=== PATIENT | female | born 1990 | race Caucasian/White ===

== ENCOUNTER 2017-01-02 19:39 | Emergency (ER) | payer OTHER ==
[~2017-01-02] VITALS: Ht 167.6 cm; Wt 90.7 kg
[~2017-01-02 19:39] MED LIST: BENADRYL 25MG C25 MG PO; CARAFATE1 GM PO; MEDROL 4MG. DOSE4 MG PO; MOTRIN 600MG.600 MG PO; PLAQUENIL200 MG PO; PREDNISONE50 MG PO; PROZAC40 MG PO; SKELAXIN800 MG PO; VICODIN 5/500 T1 TAB PO; ZOFRAN4 MG PO
[2017-01-02] MEDS ORDERED: BACTRIM DS 8001 TA1 PO (19:54)
[2017-01-02] MEDS ORDERED: DIFLUCAN150 MG PO (19:54)
[2017-01-02 19:56] VITALS: BP 117/82
--- NOTE | 2017-01-02 20:04 | Urgent Treatment Center Report ---
History of Present Issue Date/Time Seen by Provider 01/02/171953 Visit Reason Pt arrived:Walked Presenting Problem:PT HAS RED AREA BOIL LIKE ON RT BUTTOCKS Location if Accident: Onset of symptoms date/time:/ or onset unknown for:MEDICAL HX UNKNOWN Have you (or family members/close friends) recently traveled outside the [place]? N If Yes, where/when: Have you had exposure to infectious disease within the past month? TB? Other? Specify: Patient states that noticed that she had 3 small boils on her right buttocks state that the where red and sore and she has been cleaning them with witch tracy and they are doing better but one area is still sore and slightly red. States that each of them is small but really tender ALLERGIES Coded Allergies: MDX - Codeine (Codeine) (06/10/10) Converted from Ingredient Allergy: Codeine MDX - Cyclobenzaprine (From Cyclobenzaprine HCl) (06/10/10) Converted from Generic Allergy: Cyclobenzaprine Hcl MDX - Guaifenesin (From GUIAFENESIN/PSE) (NA-NAUSEA/VOMITING 05/07/12) MDX - Promethazine (From Promethazine HCl) (06/10/10) Converted from Generic Allergy: Promethazine Hcl MDX - Pseudoephedrine (From GUIAFENESIN/PSE) (NA-NAUSEA/VOMITING 05/07/12) Home Medications Active Scripts Metaxalone (Skelaxin) 800 MG PO TID #21 TAB Prov: 05/07/12 Reported Medications Fluoxetine Hcl (Prozac) 40 MG PO DAILY History Medical History General Angina: No CT: No Hypertension? No Hyperlipidemia? No CHF? No COPD? No Asthma? No CVA? No Seizures? No Diabetes? No GB Disease: No MRSA? No TB? No Cancer? No Immunization HX DT/Tetanus 1-4 YRS Surgical Hx Previous Surgery?Y Back Surgery TUMOR LT BREAST WISDOM TEETH Social History Smoking Hx Smoker: Never Smoker Tobacco: No Alcohol Alcohol: No Review of Systems All Other Systems Reviewed and Negative Comment three small boils on her buttock Physical Exam Vital Signs Vital Signs Date Time Temp Pulse Resp B/P Pulse O2 O2 Flow FiO2 Ox Delivery Rate 01/02 1945 98.1 62 20 117/82 97 General Appearance normal appearance, WD/WN, no apparent distress Respiratory Status Yes: trachea midline, chest symmetrical, non tender chest. No: respiratory distress. Cardiovascular normal exam, regular rate/rhythm, no peripheral edema Neurologic alert, dust box tender II-XII nml as tested, normal exam, no motor/sensory deficits, oriented x 3 Comments three small boil like area on right buttock that where slightly pink no streaks one was brown in color and appeared to be drying the other two was less that 0.5cm Medical Decision Making LABS/Meds/Orders Pt receiving controlled substance in ED? No Departure Departure Time of Disposition 1950 Disposition DC Home or Self Care(routine) Clinical Impression Primary Impression: Skin infection Condition STABLE Referrals [facility] (Family) Patient Instructions DI for Boils Additional Instructions Keep area clean and dry Take medication as prescribed Follow up with family doctor Watch area and if medication does not help or dry area up follow up with family doctor Return if needed Discharge Counseling Counseled pt/family regarding diagnosis, medications/RX, home care, follow up needs Prescriptions Current Visit Scripts SULFAMETHOXAZOLE W/TRIMETHOPRI (Bactrim Ds Tab) 1 TABLET PO BID #20 TAB Fluconazole (Diflucan 150MG) 150 MG PO DAILY #2 TAB at 2004
--- OUTSIDE RECORDS SUMMARY | 2017-01-04 22:35 | External Medical Summary Rpt ---
Author Author SETH Address Unknown Phone Purpose Continuity of Care Document - through 2016
--- OUTSIDE RECORDS SUMMARY | 2017-01-04 22:35 | External Medical Summary Rpt ---
Author Author SETH Address Unknown Phone [email or web address] Purpose Continuity of Care Document - 10-17-2016 through 2016
--- OUTSIDE RECORDS SUMMARY | 2017-01-04 22:35 | External Medical Summary Rpt ---
Author Author SETH Fanium, SETH Fanium Organization [employer] Address Unknown Phone Unavailable Results Comprehensive metabolic 2000 panel in Serum or Plasma Observa Value Referen Units Interpr Notes Date tion ce etation Range Albumin/G 1.1 - 1.8 No Normal No October 17 lobulin informati informati 2016 8:10 [Mass on in on in AM ratio] in source source Serum or data data Plasma Albumin 3.4 - 5.0 gm/dL Normal No October 17 [Mass/vol informati 2016 8:10 ume] in on in AM Serum or source Plasma data Alkaline 46 - 116 U/L Normal No October 17 phosphata informati 2016 8:10 se on in AM [Enzymati source c data activity/ volume] in Serum or Plasma Bilirubin 0.2 - 1.0 mg/dL Normal No October 17 .total informati 2016 8:10 [Mass/vol on in AM ume] in source Serum or data Plasma Urea 7 - 18 mg/dL Normal No October 17 nitrogen informati 2016 8:10 [Mass/vol on in AM ume] in source Serum or data Plasma Calcium 8.5 - mg/dL Normal No October 17 [Mass/vol 10.1 informati 2016 8:10 ume] in on in AM Serum or source Plasma data Chloride 98 - 107 mmoL/L Normal No October 17 [Moles/vo informati 2016 8:10 lume] in on in AM Serum or source Plasma data Carbon 21.0 - mmoL/L Normal No October 17 dioxide, 32.0 informati 2016 8:10 total on in AM [Moles/vo source lume] in data Serum or Plasma Creatinin 0.55 - mg/dL Normal No October 17 e 1.02 informati 2016 8:10 [Mass/vol on in AM ume] in source Serum or data Plasma Estimated 59- ML/MIN No REFERENCE October 17 informati RANGE: 2017 8:10 glomerula on in >60 AM r source ML/MIN/1. filtratio data 73 SQUARE n rate METERSIf (GF this patient is -A merican, then multiply theresult by 1.210. Globulin 1.3 - 3.2 gm/dL Normal No October 17 [Mass/vol informati 2016 8:10 ume] in on in AM Serum source data Glucose 74 - 106 mg/dL Normal No October 17 [Mass/vol informati 2016 8:10 ume] in on in AM Serum or source Plasma data Potassium 3.5 - 5.1 mmoL/L Normal No October 172016 8:10 [Moles/vo on in AM lume] in source Serum or data Plasma Sodium 136 - 145 mmoL/L Normal No October 17 [Moles/vo informati 2016 8:10 lume] in on in AM Serum or source Plasma data Aspartate 15 - 37 U/L Low No October 172016 8:10 aminotran on in AM sferase source [Enzymati data c activity/ volume] in Serum or Plasma Alanine 12 - 78 U/L Normal No October 17 aminotran 2016 8:10 sferase on in AM [Enzymati source c data activity/ volume] in Serum or Plasma Protein 6.4 - 8.2 gm/dL Normal No October 17 [Mass/vol informati 2016 8:10 ume] in on in AM Serum or source Plasma data Lipid 1996 panel in Serum or Plasma Observa Value Referen Units Interpr Notes Date tion ce etation Range Cholester < 200 mg/dL No No October 17 ol informati informati 2016 8:10 [Moles/vo on in on in AM lume] in source source Unspecifi data data ed specimen Cholester 40 - 60 MG/DL High No October 17 ol in HDL inform2016 8:10 on in AM [Mass/vol source ume] in data Serum or Plasma Cholester 0 - 130 mg/dL Normal No October 17 ol in LDL 2016 8:10 on in AM [Mass/vol source ume] in data Serum or Plasma by calculati on Triglycer 30 - 200 mg/dL Normal No October 17 mercedes ati 2016 8:10 [Moles/vo on in AM lume] in source Serum or data Plasma Cholester 0 - 40 No Normal October 17 ol in informati informati 2016 8:10 VLDL on in on in AM [Mass/vol source source ume] in data data Serum or Plasma Thyrotropin [Units/volume] in Serum or Plasma Observa Value Referen Units Interpr Notes Date tion ce etation Range Thyrotrop 0.358 - uIU/ml Normal No October 17 in 3.740 informati 2016 8:10 [Units/vo on in AM lume] in source Serum or data Plasma CBC W Auto Differential panel in Blood Observa Value Referen Units Interpr Notes Date tion ce etation Range Basophils 0 - 0.2 K/MM3 Normal No October 17 informati 2016 8:10 [#/volume on in AM ] in source Blood by data Automated count Basophils 0.1 - 2.0 % Normal No October 17 / informati 2016 8:10 leukocyte on in AM s in source Blood by data Automated count Eosinophi 0.0 - 0.4 K/mm3 Normal No October 17 ls informati 2016 8:10 [#/volume on in AM ] in source Blood by data Automated count Eosinophi 0.1 - % Normal No October 17 ls/100 12.0 informati 2016 8:10 leukocyte on in AM s in source Blood by data Automated count Granulocy 1.8 - 7.8 K/mm3 Normal No October 17 ena informati 2016 8:10 [#/volume on in AM ] in source Blood by data Automated count Granulocy 37.0 - % Normal No October 17 ena/100 80.0 informati 2016 8:10 leukocyte on in AM s in source Blood by data Automated count Hematocri 37.0 - % Normal No October 17 t [Volume 47.0 informati 2016 8:10 on in AM Fraction] source of Blood data Hemoglobi 12.2 - g/dL Normal No October 17 n 16.2 informati 2016 8:10 [Mass/vol on in AM ume] in source Blood data Lymphocyt 0.7 - 4.5 K/mm3 Normal No October 17 es informati 2016 8:10 [#/volume on in AM ] in source Unspecifi data ed specimen by Automated count Lymphocyt 10 - 50.0 % Normal No October 17 es informati 2016 8:10 [#/volume on in AM ] in source Unspecifi data ed specimen by Automated count Erythrocy 27 - 31.2 pg Normal No October 17 te mean informati 2016 8:10 corpuscul on in AM ar source hemoglobi data n [Entitic mass] Erythrocy 31.8 - g/dl Normal No October 17 te mean 35.4 informati 2016 8:10 corpuscul on in AM ar source hemoglobi data n concentra tion [Mass/vol ume] by Automated count Erythrocy 82.2 - fl Normal No October 17 te mean 97.8 informati 2016 8:10 corpuscul on in AM ar volume source [Entitic data volume] by Automated count Monocytes 0.1 - 1.0 K/mm3 Normal No October 17 informati 2016 8:10 [#/volume on in AM ] in source Blood by data Automated count Monocytes 1.7 - 9.3 % Normal No October 17 /100 informati 2017 8:10 leukocyte on in AM s in source Blood by data Automated count Platelet 7.4 - fl Low No October 17 mean 10.4 informati 2016 8:10 volume on in AM [Entitic source volume] data in Blood by Automated count Platelets 142 - 424 K/mm3 Normal No October 17 informati 2016 8:10 [#/volume on in AM ] in source Blood data Erythrocy 4.2 - 5.4 M/mm3 Normal No October 17 ena informati 2016 8:10 [#/volume on in AM ] in source Amniotic data fluid Erythrocy 11.5 - % Normal No October 17 te 17.5 informati 2016 8:10 distribut on in AM ion width source [Entitic data volume] by Automated count Leukocyte 4.8 - K/MM3 Normal No October 17 s 10.8 informati 2016 8:10 [#/volume on in AM ] in source Blood data
--- OUTSIDE RECORDS SUMMARY | 2017-01-04 22:35 | External Medical Summary Rpt ---
Demographics Preferred Language Afghan Marital Status Unknown Spiritism Affiliation Unknown Race Unknown Ethnic Group Unknown Author Author SETH Address Unknown Phone Immunization Unable to retrieve immunization data due to connection failure with Immunization Registry. Please try again later.
--- OUTSIDE RECORDS SUMMARY | 2017-01-04 22:35 | External Medical Summary Rpt ---
Demographics Preferred Language British Marital Status Unknown Alevism Affiliation Unknown Race Unknown Ethnic Group Unknown Author Author SETH Address Unknown Phone Immunization Unable to retrieve immunization data due to connection failure with Immunization Registry. Please try again later.
--- OUTSIDE RECORDS SUMMARY | 2017-01-04 22:35 | External Medical Summary Rpt ---
Author Author SETH Address Unknown Phone [email or web address] Purpose Continuity of Care Document - 10-17-2016 through 2016
--- OUTSIDE RECORDS SUMMARY | 2017-01-04 22:35 | External Medical Summary Rpt ---
Author Author SETH Umami, SETH Umami Organization [employer] Address Unknown Phone Unavailable [...]
== END 2017-01-02 20:05 | disposition home or self-care (01) ==
LOC: UTC 19:39
DX: L02.32 Furuncle of buttock (principal)

== ENCOUNTER 2017-02-08 17:25 | Emergency (ER) | payer OTHER ==
[~2017-02-08] VITALS: Ht 167.6 cm; Wt 95.3 kg
[~2017-02-08 17:25] MED LIST changes: +BACTRIM DS 8001 TA1 PO; +DIFLUCAN150 MG PO
[2017-02-08] MEDS ORDERED: DIFLUCAN150 MG PO (18:12)
[2017-02-08] MEDS ORDERED: BACTRIM DS 8001 TA1 PO (18:12)
--- NOTE | 2017-02-08 18:14 | Urgent Treatment Center Report ---
History of Present Issue Date/Time Seen by Provider 02/08/17 1804 Visit Reason Pt arrived:Walked Presenting Problem:PT STATES AREA TO LEFT BARRAGAN X3 DAYS THAT IS RED, SWOLLEN AND HOT TO TOUCH Location if Accident: Onset of symptoms date/time:/ or onset unknown for:MEDICAL HX UNKNOWN Have you (or family members/close friends) recently traveled outside the [place]? N If Yes, where/when: Have you had exposure to infectious disease within the past month? TB? Other? Specify: c/o redness and pain left anterior barragan x 3 days. Was more swollen but pt lanced w/ a needle "I sterilized it first" and thick white drainage came out. However more red and more painful. "it throbs". Hasn't taken any medication for pain or symptoms. Pt isn't sure how redness started. "maybe a bug bite. I am not sure." Denies fever, aches, chills. Source patient Exam Limitations no limitations ALLERGIES Coded Allergies: codeine (02/08/17) cyclobenzaprine (02/08/17) guaifenesin (02/08/17) promethazine (02/08/17) pseudoephedrine (02/08/17) Home Medications Active Scripts SULFAMETHOXAZOLE W/TRIMETHOPRI (Bactrim Ds Tab) 1 TABLET PO BID #20 TAB Prov: 01/02/17 Metaxalone (Skelaxin) 800 MG PO TID #21 TAB Prov: 05/07/12 Reported Medications Fluoxetine Hcl (Prozac) 40 MG PO DAILY History Medical History General CAD? No Angina: No [place]: No Hypertension? No Hyperlipidemia? No CHF? No DVT? No PE? No COPD? No Asthma? No Anemia? No GERD? No Gastric ulcers? No GI Bleed? No Hernia? No Thyroid Problems? No Hypothyroidism? No CVA? No Seizures? No Diabetes? No Renal Insuffiency? No UTI? No Stones? No BPH? No GB Disease: No Nephritic Syndrome? No Asplenia? No Hepatitis? No Sickle Cell Disease? No Arthritis? No Migraines? No Cataracts? No Glaucoma? No MRSA? No HIV? No TB? No Anxiety? No Depression? No Cancer? No More? 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 Cardiovascular no peripheral edema Neurologic alert, no motor/sensory deficits, oriented x 3 Skin 2.5x2cm eyrthema w/ center approx 2mm scab left mid anterior barragan. Flat. No fluctuation. Not firm. Moderate tenderness and warm. Medical Decision Making LABS/Meds/Orders Pt receiving controlled substance in ED? No Departure Departure Time of Disposition 1809 Disposition DC Home or Self Care(routine) Clinical Impression Primary Impression: Cellulitis of left lower leg Secondary Impressions: History of candidal vulvovaginitis Condition STABLE Referrals NO REFERRAL Follow up with primary care for persistant symptoms. Return to [facility] this weekend for new or worsening symptoms. Patient Instructions DI for Cellulitis -- Adult, DI for Vaginal Yeast Infection Additional Instructions * Start antibiotic(s) immediately and be sure to take as ordered for the FULL length of time although you should start to see improvement over the next 24-48 hours. * Monitor closely. FU immediately for new or worsening symptoms ( including but not limited to redness, swelling, red streaking, fever, chills). * Warm compresses 15 min 3-4 times a day * never squeeze or pop these on your own. Seek immediate medical attention next time these occur. * Monitor Temp. Tylenol every 4 hours as needed and/or ibuprofen every 6 hours as needed (as long as your primary care doctor has told you that it is ok to take both) for fever/aches/pain. ER if fever no less than 101 despite tylenol and ibuprofen * Monitor for symptoms of yeast infection as discussed. Do NOT start diflucan until those symptoms are noted. If doesn't resolve symptoms, be sure to follow up w/ DISCOUNT CLERK as may not be yeast infection Discharge Counseling Counseled pt/family regarding diagnosis, medications/RX, home care, follow up needs Prescriptions Current Visit Scripts SULFAMETHOXAZOLE W/TRIMETHOPRI (Bactrim Ds Tab) 1 TABLET PO BID #20 TAB Fluconazole (Diflucan 150MG) 150 MG PO DAILY #1 TAB at 6143
--- NOTE | 2017-02-08 18:14 | Urgent Treatment Center Report ---
History of Present Issue Date/Time Seen by Provider 02/08/17 1804 Visit Reason Pt arrived:Walked Presenting Problem:PT STATES AREA TO LEFT BARRAGAN X3 DAYS THAT IS RED, SWOLLEN AND HOT TO TOUCH Location if Accident: Onset of symptoms date/time:/ or onset unknown for:MEDICAL HX UNKNOWN Have you (or family members/close friends) recently traveled outside the [place]? N If Yes, where/when: Have you had exposure to infectious disease within the past month? TB? Other? Specify: c/o redness and pain left anterior barragan x 3 days. Was more swollen but pt lanced w/ a needle "I sterilized it first" and thick white drainage came out. However more red and more painful. "it throbs". Hasn't taken any medication for pain or symptoms. Pt isn't sure how redness started. "maybe a bug bite. I am not sure." Denies fever, aches, chills. Source patient Exam Limitations no limitations ALLERGIES Coded Allergies: codeine (02/08/17) cyclobenzaprine (02/08/17) guaifenesin (02/08/17) promethazine (02/08/17) pseudoephedrine (02/08/17) Home Medications Active Scripts SULFAMETHOXAZOLE W/TRIMETHOPRI (Bactrim Ds Tab) 1 TABLET PO BID #20 TAB Prov: 01/02/17 Metaxalone (Skelaxin) 800 MG PO TID #21 TAB Prov: 05/07/12 Reported Medications Fluoxetine Hcl (Prozac) 40 MG PO DAILY History Medical History General CAD? No Angina: No [place]: No Hypertension? No Hyperlipidemia? No CHF? No DVT? No PE? No COPD? No Asthma? No Anemia? No GERD? No Gastric ulcers? No GI Bleed? No Hernia? No Thyroid Problems? No Hypothyroidism? No CVA? No Seizures? No Diabetes? No Renal Insuffiency? No UTI? No Stones? No BPH? No GB Disease: No Nephritic Syndrome? No Asplenia? No Hepatitis? No Sickle Cell Disease? No Arthritis? No Migraines? No Cataracts? No Glaucoma? No MRSA? No HIV? No TB? No Anxiety? No Depression? No Cancer? No More? 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 Cardiovascular no peripheral edema Neurologic alert, no motor/sensory deficits, oriented x 3 Skin 2.5x2cm eyrthema w/ center approx 2mm scab left mid anterior barragan. Flat. No fluctuation. Not firm. Moderate tenderness and warm. Medical Decision Making LABS/Meds/Orders Pt receiving controlled substance in ED? No Departure Departure Time of Disposition 1809 Disposition DC Home or Self Care(routine) Clinical Impression Primary Impression: Cellulitis of left lower leg Secondary Impressions: History of candidal vulvovaginitis Condition STABLE Referrals NO REFERRAL Follow up with primary care for persistant symptoms. Return to [facility] this weekend for new or worsening symptoms. Patient Instructions DI for Cellulitis -- Adult, DI for Vaginal Yeast Infection Additional Instructions * Start antibiotic(s) immediately and be sure to take as ordered for the FULL length of time although you should start to see improvement over the next 24-48 hours. * Monitor closely. FU immediately for new or worsening symptoms ( including but not limited to redness, swelling, red streaking, fever, chills). * Warm compresses 15 min 3-4 times a day * never squeeze or pop these on your own. Seek immediate medical attention next time these occur. * Monitor Temp. Tylenol every 4 hours as needed and/or ibuprofen every 6 hours as needed (as long as your primary care doctor has told you that it is ok to take both) for fever/aches/pain. ER if fever no less than 101 despite tylenol and ibuprofen * Monitor for symptoms of yeast infection as discussed. Do NOT start diflucan until those symptoms are noted. If doesn't resolve symptoms, be sure to follow up w/ CERTIFIED FIRE INVESTIGATOR as may not be yeast infection Discharge Counseling Counseled pt/family regarding diagnosis, medications/RX, home care, follow up needs Prescriptions Current Visit Scripts SULFAMETHOXAZOLE W/TRIMETHOPRI (Bactrim Ds Tab) 1 TABLET PO BID #20 TAB Fluconazole (Diflucan 150MG) 150 MG PO DAILY #1 TAB at 2795
[2017-02-08 18:16] VITALS: BP 130/74
== END 2017-02-08 18:17 | disposition home or self-care (01) ==
LOC: UTC 17:25
DX: L03.116 Cellulitis of left lower limb (principal); M35.9 Systemic involvement of connective tissue, unspecified; B37.3 Candidiasis of vulva and vagina; Z88.5 Allergy status to narcotic agent; Z88.8 Allergy status to other drugs, medicaments and biological substances; Z79.899 Other long term (current) drug therapy

== ENCOUNTER 2017-03-25 23:54 | Outpatient (CLI) | payer OTHER | END 2017-03-26 00:14 | disposition home or self-care (01) | LOC: ER 23:54 | DX: M54.42 Lumbago with sciatica, left side (principal) ==

== ENCOUNTER 2017-04-06 11:12 | Emergency (ER) | payer OTHER ==
[~2017-04-06] VITALS: Ht 167.6 cm; Wt 99.8 kg
--- NOTE | 2017-04-06 11:49 | Emergency Room Report ---
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 N Clinical Suspician of Infection? N Mental Status: 1 - Regular (Normal Baseline) Sepsis Risk:Low Sepsis Risk Have you (or family members/close friends) recently traveled outside the [place]? N If Yes, where/when: Have you had exposure to infectious disease within the past month? N TB? Other? Specify: Patient with dry cough, high spiking fever, myalgias x 24 hours; mild sore throat. No vomiting. 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 No rash. ALLERGIES Coded Allergies: codeine (02/08/17) cyclobenzaprine (02/08/17) guaifenesin (02/08/17) promethazine (02/08/17) pseudoephedrine (02/08/17) Home Medications Active Scripts SULFAMETHOXAZOLE W/TRIMETHOPRI (Bactrim Ds Tab) 1 TABLET PO BID #20 TAB Prov: 01/02/17 Metaxalone (Skelaxin) 800 MG PO TID #21 TAB Prov: 05/07/12 SULFAMETHOXAZOLE W/TRIMETHOPRI (Bactrim Ds Tab) 1 TABLET PO BID #20 TAB Prov: 02/08/17 Fluconazole (Diflucan 150MG) 150 MG PO DAILY #1 TAB Prov: 02/08/17 Reported Medications Fluoxetine Hcl (Prozac) 40 MG PO DAILY History Medical History General CAD? No Angina: No HI: No Hypertension? No Hyperlipidemia? No CHF? No DVT? No PE? No COPD? No Asthma? No Anemia? No GERD? No Gastric ulcers? No GI Bleed? No Hernia? No Thyroid Problems? No Hypothyroidism? No CVA? No Seizures? No Diabetes? No Renal Insuffiency? No End Stage Renal Disease? No UTI? No Stones? No BPH? No GB Disease: No Nephritic Syndrome? No Asplenia? No Hepatitis? No Sickle Cell Disease? No Arthritis? No Migraines? No Cataracts? No Glaucoma? No MRSA? No HIV? No TB? No Anxiety? No Depression? No Cancer? No More? Yes Additional hx: LUPUS Immunization Hx DT/Tetanus 1-4 YRS Surgical Hx Previous Surgery?Y Back Surgery TUMOR LT BREAST WISDOM TEETH [employer] COMPLIANCE Hx LMP 1 Month Ago Social History Smoking Hx Smoker: Never Smoker Tobacco: No Alcohol Alcohol: No Review of Systems All Other Systems Reviewed and Negative Constitutional see HPI Respiratory see HPI Musculoskeletal see HPI Physical Exam Vital Signs Vital Signs Date Time Temp Pulse Resp B/P Pulse O2 O2 Flow FiO2 Ox Delivery Rate 04/06 1116 99.0 100 18 107/54 96 General Appearance normal appearance, WD/WN, no apparent distress Eye Exam - bilateral eye normal exam, bilateral eye PERRL, bilateral eye EOMI Ear, Nose, Throat hearing grossly normal, pharyngeal erythema (very minimal tons swellg R) Neck normal inspection, non-tender, supple, full range of motion Respiratory Status Yes: trachea midline, chest symmetrical, non tender chest, non productive cough. No: respiratory distress, tender on palpation, use of accessory muscles, pain on inspiration, pain on expiration, productive cough. Lung Sounds bilateral: normal breath sounds, lungs clear. Cardiovascular normal exam, regular rate/rhythm, no peripheral edema, no gallop, no JVD, no murmur, no rub Gastrointestinal normal bowel sounds, normal exam, non tender, soft, no organomegaly, no pulsatile mass, no guarding, no rebound Back no CVA tenderness Strength 5 Upper Ext (L), 5 Upper Ext (R), 5 Lower Ext (L), 5 Lower Ext (R) Neurologic alert, normal exam (nonfocal; ambulatory) Glascow Coma Scale Glascow Coma Scale Response Value EYE response: 4 Spontaneously 4 MOTOR response: 6 OBEYS 6 VERBAL response: 5 Oriented & Converses 5 Total 15 Skin intact, normal color, warm/dry, diaphoresis Medical Decision Making LABS/Meds/Orders Pt receiving controlled substance in ED? No Results/Orders Laboratory Tests 04/06/17 1130: Influenza Type A Ag NOT DETECTED, Influenza Type B Ag NOT DETECTED, Urine Color YELLOW, Urine Appearance CLEAR, Urine pH 7.0, Ur Specific [place] 1.015, Urine Protein NEGATIVE, Urine Ketones NEGATIVE, Urine Blood NEGATIVE, Urine Nitrate NEGATIVE, Urine Bilirubin NEGATIVE, Urine Urobilinogen 1.0, Ur Leukocyte Esterase NEGATIVE, Urine Glucose NEGATIVE Current Medication Orders Sig/Perlita Start time Last Medication Dose Route Stop Time Status Admin Acetaminophen 650 MG ONCE ONE 04/06 1145 DC PO 04/06 1146 Orders Procedure Date/time Status CULTURE, THROAT 04/06 1130 Active URINALYSIS/COMPLETE 04/06 1124 Complete STREP SCREEN THROAT 04/06 1124 Complete URINE 04/06 1124 Complete INFLUENZA A&B ANTIGENS 04/06 1124 Complete Departure Departure Time of Disposition 1207 Disposition DC Home or Self Care(routine) Clinical Impression Primary Impression: Flu-like symptoms Secondary Impressions: Viral pharyngitis Condition STABLE Patient Instructions Influenza Additional Instructions Tylenol, Advil, as needed, lots of fluids; do not work while febrile; see Neha next week for recheck. Tx Tamiflu and advise contacts to call their PCP's for prophylaxis for flu. Discharge Counseling Counseled pt/family regarding diagnosis, test results, medications/RX, home care Prescriptions Current Visit Scripts Oseltamivir Phosphate (Tamiflu 75MG Capsule) 75 MG PO BID #10 CAP ED Critical Care Critical Care No at 1211
[2017-04-06 11:51] LABS: URINE BILIRUBIN - DIPSTICK NEGATIVE (NEG); URINE BLOOD NEGATIVE (NEG)
--- OUTSIDE RECORDS SUMMARY | 2017-04-06 11:52 | External Medical Summary Rpt | CCD ---
Author Author SETH Address Unknown Phone [email or web address] Purpose Continuity of Care Document - 10-17-2016 through 2016
--- OUTSIDE RECORDS SUMMARY | 2017-04-06 11:52 | External Medical Summary Rpt ---
Author Author [employer], [employer] Organization [employer] Address Unknown Phone Unavailable Results Cobalamin (Vitamin B12) [Mass/volume] in Serum Observa Value Referen Units Interpr Notes Date tion ce etation Range Cobalamin 211 - 946 pg/mL No Performed Sep 12 (Vitamin informati at: CB 2016 9:00 B12) on in - [facility] AM [Mass/vol source ume] in data [place] [address] [address] [place], [place] [id number] Department Assistant: Dean Roy PhD, Phone: [phone] Estrogen [Mass/volume] in Serum or Plasma Observa Value Referen Units Interpr Notes Date tion ce etation Range Estrogen . pg/mL No Prepubert Sep 12 [Mass/vol informati al 2016 9:00 ume] in on in AM Serum or source <40Female Plasma data Cycle:1-1 0 Days 61 - 42741-16 Days 122 - 31329-99 Days 156 - 350Post-M enopausal <40HMG Treatment for Ovulation Induction : 400 - 800Perfor med at: BN - [facility] [address] [id number] Department Assistant: Te Smith MD, Phone: [phone] Folate [Mass/volume] in Serum or Plasma Observa Value Referen Units Interpr Notes Date tion ce etation Range Folate >3.0 ng/mL No A serum Sep 12 [Mass/vol informati folate 2016 9:00 ume] in on in concentra AM Serum or source tion of Plasma data less than 3.1 ng/mL isconside red to represent clinical deficienc y. Follitropin [Units/volume] in Serum or Plasma Observa Value Referen Units Interpr Notes Date tion ce etation Range Follitrop . mIU/mL No Adult Sep 12 in informati Female:Fo 2017 9:00 [Units/vo on in llicular AM lume] in source phase Serum or data 3.5 - Plasma 12.5Ovula tion phase 4.7 - 21.5Lutea l phase 1.7 - 7.7Postme nopausal 25.8 - 134.8Perf ormed at: CB - [facility] [id number] [place], [place] [id number] Department Assistant: Dean Roy PhD, Phone: [phone] Lutropin [Units/volume] in Serum or Plasma Observa Value Referen Units Interpr Notes Date tion ce etation Range Lutropin . mIU/mL No Adult Sep 12 [Units/vo informati Female:Fo 2016 9:00 lume] in on in llicular AM Serum or source phase Plasma data 2.4 - 12.6Ovula tion phase 14.0 - 95.6Lutea l phase 1.0 - 11.4Postm enopausal 7.7 - 58.5 25-Hydroxyvitamin D [Mass/volume] in Serum or Plasma Observa Value Referen Units Interpr Notes Date tion ce etation Range 25-Hydrox 30.0 - ng/mL No Vitamin D Feb 12 yvitamin 100.0 informati 2016 9:00 D on in deficienc AM [Mass/vol source y has ume] in data been Serum or defined Plasma by the [place] [facility] and an Endocrine Society practice guideline as alevel of serum 25-OH vitamin D less than 20 ng/mL (1,2).The Endocrine Society went on to further define vitamin Dinsuffic iency as a level between 21 and 29 ng/mL (2).1. IOM (Institut e of Medicine) . 2010. Dietary reference intakes for calcium and D. [place]: [employer] al Academies Press.2. Brianda MF, Mack [place], [place] Zimmerman SMITH, et al.Evalua tion, treatment , and preventio n of vitamin Ddeficien cy: an Endocrine Society clinical practiceg uideline. JCEM. 2010; 96(7):191 1-30. Choriogonadotropin [Units/volume] in Serum or Plasma Observa Value Referen Units Interpr Notes Date tion ce etation Range Choriogon NEG No No No Feb 12 adotropin informati informati informati 2017 9:00 on in on in on in AM [Units/vo source source source lume] in data data data Serum or Plasma Comprehensive metabolic 2000 panel in Serum or Plasma Observa Value Referen Units Interpr Notes Date tion ce etation Range Albumin/G 1.1 - 1.8 No Normal No Sep 12 lobulin informati informati 2017 9:00 [Mass on in on in AM ratio] in source source Serum or data data Plasma Albumin 3.4 - 5.0 gm/dL Normal No Sep 12 [Mass/vol informati 2017 9:00 ume] in on in AM Serum or source Plasma data Alkaline 46 - 116 U/L Normal No Sep 12 phosphata informati 2017 9:00 se on in AM [Enzymati source c data activity/ volume] in Serum or Plasma Bilirubin 0.2 - 1.0 mg/dL Normal No Sep 12 .total informati 2017 9:00 [Mass/vol on in AM ume] in source Serum or data Plasma Urea 7 - 18 mg/dL Normal No Sep 12 nitrogen informati 2017 9:00 [Mass/vol on in AM ume] in source Serum or data Plasma Calcium 8.5 - mg/dL Normal No Sep 12 [Mass/vol 10.1 informati 2017 9:00 ume] in on in AM Serum or source Plasma data Chloride 98 - 107 mmoL/L Normal No Sep 12 [Moles/vo informati 2017 9:00 lume] in on in AM Serum or source Plasma data Carbon 21.0 - mmoL/L Normal No Sep 12 dioxide, 32.0 informati 2017 9:00 total on in AM [Moles/vo source lume] in data Serum or Plasma Creatinin 0.55 - mg/dL Normal No Sep 12 e 1.02 informati 2017 9:00 [Mass/vol on in AM ume] in source Serum or data Plasma Estimated 59- ML/MIN No REFERENCE Sep 12 informati RANGE: 2017 9:00 glomerula on in >60 AM r source ML/MIN/1. filtratio data 73 SQUARE n rate METERSIf (GF this patient is -A merican, then multiply theresult by 1.210. Globulin 1.3 - 3.2 gm/dL Normal No Sep 12 [Mass/vol informati 2017 9:00 ume] in on in AM Serum source data Glucose 74 - 106 mg/dL Normal No Sep 12 [Mass/vol informati 2016 9:00 ume] in on in AM Serum or source Plasma data Potassium 3.5 - 5.1 mmoL/L Normal No Sep 12 informati 2016 9:00 [Moles/vo on in AM lume] in source Serum or data Plasma Sodium 136 - 145 mmoL/L Normal No Sep 12 [Moles/vo informati 2016 9:00 lume] in on in AM Serum or source Plasma data Aspartate 15 - 37 U/L Low No Sep 12 informati 2016 9:00 aminotran on in AM sferase source [Enzymati data c activity/ volume] in Serum or Plasma Alanine 12 - 78 U/L Normal No Sep 12 aminotran informati 2016 9:00 sferase on in AM [Enzymati source c data activity/ volume] in Serum or Plasma Protein 6.4 - 8.2 gm/dL Normal No Sep 12 [Mass/vol informati 2016 9:00 ume] in on in AM Serum or source Plasma data Thyroxine (T4) free [Mass/volume] in Serum or Plasma Observa Value Referen Units Interpr Notes Date tion ce etation Range Thyroxine 0.76 - ng/dL Normal No Sep 12 (T4) 1.46 informati 2016 9:00 free on in AM [Mass/vol source ume] in data Serum or Plasma Thyrotropin [Units/volume] in Serum or Plasma Observa Value Referen Units Interpr Notes Date tion ce etation Range Thyrotrop 0.358 - uIU/ml No No Sep 12 in 3.740 informati informati 2016 9:00 [Units/vo on in on in AM lume] in source source Serum or data data Plasma CBC W Auto Differential panel in Blood Observa Value Referen Units Interpr Notes Date tion ce etation Range Basophils 0 - 0.2 K/MM3 Normal No Sep 12 informati 2016 9:00 [#/volume on in AM ] in source Blood by data Automated count Basophils 0.1 - 2.0 % Normal No Sep 12 /100 informati 2016 9:00 leukocyte on in AM s in source Blood by data Automated count Eosinophi 0.0 - 0.4 K/mm3 Normal No Sep 12 ls informati 2016 9:00 [#/volume on in AM ] in source Blood by data Automated count Eosinophi 0.1 - % Normal No Sep 12 ls/100 12.0 informati 2017 9:00 leukocyte on in AM s in source Blood by data Automated count Granulocy 1.8 - 7.8 K/mm3 Normal No Sep 12 ena informati 2016 9:00 [#/volume on in AM ] in source Blood by data Automated count Granulocy 37.0 - % Normal No Sep 12 ena/100 80.0 informati 2016 9:00 leukocyte on in AM s in source Blood by data Automated count Hematocri 37.0 - % Normal No Sep 12 t [Volume 47.0 informati 2016 9:00 on in AM Fraction] source of Blood data Hemoglobi 12.2 - g/dL Normal No Sep 12 n 16.2 informati 2016 9:00 [Mass/vol on in AM ume] in source Blood data Lymphocyt 0.7 - 4.5 K/mm3 Normal No Sep 12 es informati 2016 9:00 [#/volume on in AM ] in source Unspecifi data ed specimen by Automated count Lymphocyt 10 - 50.0 % Normal No Sep 12 es informati 2016 9:00 [#/volume on in AM ] in source Unspecifi data ed specimen by Automated count Erythrocy 27 - 31.2 pg Normal No Sep 12 te mean informati 2016 9:00 corpuscul on in AM ar source hemoglobi data n [Entitic mass] Erythrocy 31.8 - g/dl Normal No Sep 12 te mean 35.4 informati 2016 9:00 corpuscul on in AM ar source hemoglobi data n concentra tion [Mass/vol ume] by Automated count Erythrocy 82.2 - fl Normal No Sep 12 te mean 97.8 informati 2016 9:00 corpuscul on in AM ar volume source [Entitic data volume] by Automated count Monocytes 0.1 - 1.0 K/mm3 Normal No Sep 12 informati 2017 9:00 [#/volume on in AM ] in source Blood by data Automated count Monocytes 1.7 - 9.3 % Normal No Sep 12 /100 informati 2016 9:00 leukocyte on in AM s in source Blood by data Automated count Platelet 7.4 - fl Normal No Sep 12 mean 10.4 informati 2016 9:00 volume on in AM [Entitic source volume] data in Blood by Automated count Platelets 142 - 424 K/mm3 Normal No Sep 12 informati 2016 9:00 [#/volume on in AM ] in source Blood data Erythrocy 4.2 - 5.4 M/mm3 Normal No Sep 12 ena informati 2016 9:00 [#/volume on in AM ] in source Amniotic data fluid Erythrocy 11.5 - % Normal No Sep 12 te 17.5 informati 2017 9:00 distribut on in AM ion width source [Entitic data volume] by Automated count Leukocyte 4.8 - K/MM3 Normal No Sep 12 s 10.8 informati 2016 9:00 [#/volume on in AM ] in source Blood data Comprehensive metabolic 2000 panel in Serum or [...] 15 - 37 U/L Low No October 17 inform2016 8:10 aminotran on in AM sferase source [Enzymati data c activity/ volume] in Serum or Plasma Alanine 12 - 78 U/L Normal No October 17 aminotran informati 2016 8:10 sferase on in AM [Enzymati [...] High No October 17 ol in HDL informati 2016 8:10 on in AM [Mass/vol source ume] in data Serum or Plasma Cholester 0 - 130 mg/dL Normal No October 17 ol in LDL informati 2016 8:10 on in AM [Mass/vol source ume] in data Serum or Plasma by calculati on Triglycer 30 - 200 mg/dL Normal No October 17 mercedes informati 2016 8:10 [Moles/vo on in AM lume] [...] - 2.0 % Normal No October 17 /100 informati 2016 8:10 leukocyte on in AM [...] - 9.3 % Normal No October 17 / informati 2016 8:10 leukocyte on in AM s in source Blood by data Automated count Platelet 7.4 - fl Low No October 17 mean 10.4 informati 2016 8:10 volume on in AM [Entitic source volume] data in Blood by Automated count Platelets 142 - 424 K/mm3 Normal No October 17 informati 2017 8:10 [#/volume on in AM ] in [...]
--- OUTSIDE RECORDS SUMMARY | 2017-04-06 11:52 | External Medical Summary Rpt | CCD ---
Demographics Preferred Language Armenian Marital Status Unknown Restorationism Affiliation Unknown Race Unknown Ethnic Group Unknown Author Author , SETH ANN Address Unknown Phone Immunization Unable to retrieve immunization data due to connection failure with Immunization Registry. Please try again later.
--- OUTSIDE RECORDS SUMMARY | 2017-04-06 11:52 | External Medical Summary Rpt | CCD ---
Author Author [employer] Organization [employer] Address Unknown Phone Unavailable Purpose Continuity of Care Document - through 2016
--- OUTSIDE RECORDS SUMMARY | 2017-04-06 11:52 | External Medical Summary Rpt ---
[...] [facility] AM [Mass/vol source ume] in data [place] [address] [address] [place], [place] [id number] Rehab Care Assistant: Dean Roy PhD, Phone: [phone] Estrogen [Mass/volume] in Serum or Plasma Observa Value Referen Units Interpr Notes Date tion ce etation Range Estrogen . pg/mL No Prepubert Sep 12 [Mass/vol informati al 2016 9:00 ume] in on in AM Serum or source <40Female Plasma data Cycle:1-1 0 Days 61 - 03863-94 Days 122 - 32236-12 Days 156 - 350Post-M enopausal <40HMG Treatment for Ovulation Induction : 400 - 800Perfor med at: BN - [facility] [address] [id number] Rehab Care Assistant: Te Smith MD, Phone: [phone] Folate [Mass/volume] in Serum or Plasma [...] - 134.8Perf ormed at: CB - [facility] [id number] [place], [place] [id number] Rehab Care Assistant: Dean Roy PhD, Phone: [phone] Lutropin [Units/volume] in Serum or Plasma [...] been Serum or defined Plasma by the [place] [facility] and an Endocrine Society practice [...]
--- OUTSIDE RECORDS SUMMARY | 2017-04-06 11:52 | External Medical Summary Rpt | CCD ---
Demographics Preferred Language Macedonian Marital Status Unknown Jain Affiliation Unknown Race Unknown Ethnic Group Unknown Author Author , SETH ANN Address Unknown Phone Immunization Unable to retrieve immunization data due to connection failure with Immunization Registry. Please try again later.
--- OUTSIDE RECORDS SUMMARY | 2017-04-06 11:52 | External Medical Summary Rpt | CCD ---
Author Author SETH Address Unknown Phone Purpose Continuity of Care Document - 10-17-2016 through 2016
[2017-04-06 11:57] LABS: B-HCG URINE PREGNANCY (RAPID) NEGATIVE (NEG); STREP SCREEN (RAPID) NEGATIVE
[2017-04-06] MEDS ORDERED: TAMIFLU 75MG CA75 MG PO (12:10)
[2017-04-06 12:16] VITALS: BP 107/54
[2017-04-06] MEDS ORDERED: VALIUM 5MG TABLE5 MG PO (22:22)
== END 2017-04-06 12:19 | disposition home or self-care (01) ==
LOC: ER 11:12
PROVIDERS: Emergency Medicine
DX: J02.9 Acute pharyngitis, unspecified (principal); Z88.8 Allergy status to other drugs, medicaments and biological substances

== ENCOUNTER 2017-05-15 17:52 | Emergency (ER) | payer OTHER ==
[~2017-05-15 17:52] MED LIST changes: +TAMIFLU 75MG CA75 MG PO; +VALIUM 5MG TABLE5 MG PO
== END 2017-05-15 18:24 | disposition left against medical advice (07) ==
LOC: UTC 17:52
DX: Z53.29 Procedure and treatment not carried out because of patient's decision for other reasons (principal)